=== PATIENT | female | born 1960 | race Caucasian/White ===

== ENCOUNTER 2019-03-28 16:16 | Emergency (ER) | payer OTHER ==
[~2019-03-28] VITALS: Ht 165.1 cm; Wt 73.9 kg
[2019-03-28] MEDS ORDERED: fentaNYL INJECTION 100 MCG/2 ML AMP IVP ONE (16:30)
[2019-03-28] MEDS ORDERED: KETOROLAC 30 MG/ML VIAL IVP ONE (16:30)
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
[2019-03-28] MEDS ORDERED: TETANUS,DIPTH,PERTUSS P/F (BOOSTRIX) 0.5 ML VIAL IM ONE (16:45)
[2019-03-28] MEDS ORDERED: KETOROLAC 30 MG/ML VIAL IM ONE (16:45)
[2019-03-28] MEDS ORDERED: oxyCODONE/APAP 5/325MG (PERCOCET 5) TABLET PO ONE (16:45)
[2019-03-28] MEDS ORDERED: OXYC1TAB87 PO (16:51)
[2019-03-28] MEDS ORDERED: BACITRACIN OINTMENT 28 GM TUBE ONE (16:56)
[2019-03-28 17:15] VITALS: BP 171/95
--- OUTSIDE RECORDS SUMMARY | 2019-03-28 17:24 | XMS REPORT ---
Author Author DAKOTA COOLEY [facility] Address Unknown Care Team Providers Care Health Services Manager Name Role Phone DAKOTA COOLEY Unavailable PROBLEMS Type Condition ICD9-CM Code [id number] Code Onset Dates Condition Status SNOMED Code Problem Hypercholesterolemia E78.00 Active 37011363 Problem Recurrent major depressive disorder, in partial remission F33.41 Active 63589960 Problem Hypercholesteremia E78.00 Active 767933464 Problem HTN (hypertension) I10 Active 95696591 Problem Masses of both breasts N63 Active 09275943 Problem Intractable episodic cluster headache G44.011 Active 667210266384324 Problem Depression F32.9 Active 40645143 ALLERGIES No Information ENCOUNTERS Encounter Location Date Diagnosis [facility] [address] [id number] Aug, [facility] [address] [id number] Aug, [facility] [address] [address] Aug, Blood pressure check Z01.30 [facility] [address] [address] Aug, HTN (hypertension) I10 [facility] [address] [id number] Jul, Caries K02.9 [facility] [address] [id number] Jul, [facility] [address] [address] Jul, [facility] [address] [address] Jul, HTN (hypertension) I10 ; Hypercholesteremia E78.00 and Recurrent major depressive disorder, in partial remission F33.41 [facility] [address] [place] [id number] [place] [phone] Apr, [facility] [id number] [place] [id number] Apr, [facility] [id number] [place] [phone] Apr, [facility] [address] [address] February, Depression F32.9 and HTN (hypertension) I10 [place] [address] [address] Oct, Masses of both breasts N63 and Screening for breast cancer Z12.[address] [address] Sep, Screening for breast cancer Z12.31 and Tobacco use Z72.0 [facility] [address] [address] Aug, Encounter for immunization Z23 [facility] [address] [address] Jun, Depression F32.9 [facility] [id number] [place] [phone] Jun, Dental examination Z01.20 [facility] [address] [address] May, HTN (hypertension) I10 ; Depression F32.9 ; Pure hypercholesterolemia E78.0 ; Intractable episodic cluster headache G44.011 and Tobacco abuse counseling Z71.6 [facility] [id number] [place] [id number] Mar, Dental examination Z01.20 [facility] [id number] [place] [phone] Mar, Encounter for dental examination Z01.20 [facility] [id number] [place] [phone] 07 Mar, 2017 Depression F32.9 and Pure hypercholesterolemia E78.0 [facility] [address] [address] Mar, Pure hypercholesterolemia E78.0 ; Depression F32.9 and HTN (hypertension) I10 [facility] [address] [address] Mar, Depression F32.9 ; Pure hypercholesterolemia E78.0 and HTN (hypertension) I10 [facility] [address] [address] Jan, HTN (hypertension) I10 ; Pure hypercholesterolemia E78.0 ; Hypercholesterolemia E78.0 ; Depression F32.9 and Intractable episodic cluster headache G44.011 [facility] [address] [id number] Apr, Dental caries K02.9 and Dental examination Z01.20 [facility] [address] [id number] Apr, [facility] [address] [id number] Apr, Dental examination Z01.20 [facility] [address] [id number] Mar, Dental examination Z01.20 [facility] [address] [id number] February, Dental examination Z01.20 [facility] [address] [address] February, Pure hypercholesterolemia E78.0 [facility] [address] [address] Jan, Joint pain M25.50 ; Depression F32.9 and Dermatitis L30.9 [facility] [address], [place] [id number] Nov, Encounter for dental examination Z01.20 [facility] [address] [place] [phone] Nov, [facility] [id number] [place] [address] [id number] Nov, Encounter for dental examination Z01.20 [facility] [id number] [place] [address] [phone] Nov, Encounter for dental examination Z01.20 [facility] [id number] [place] [address] Sep, Bursitis of right hip M70.71 and Trochanteric bursitis of right hip M70.61 [place] [id number] [place] [phone] Sep, [facility] [address] [address] Sep, HTN (hypertension) I10 and Hypercholesterolemia E78.0 [facility] [id number] [place] [phone] Sep, History of breast lump/mass excision Z98.89 [facility] [id number] [place] [phone] Sep, [facility] [id number] [place] [phone] Sep, History of breast lump/mass excision Z98.89 [facility] [id number] [place] [phone] Sep, Encounter for screening mammogram for breast cancer Z12.31 [facility] [id number] [place] [phone] Sep, HTN (hypertension) I10 ; Hypercholesterolemia E78.0 ; Depression F32.9 and Breast self examination education, encounter for Z71.89 IMMUNIZATIONS No Known Immunizations SOCIAL HISTORY Never Assessed REASON FOR VISIT Refill request PLAN OF CARE VITAL SIGNS MEDICATIONS Medication Instructions Dosage Frequency Start Date End Date Duration Status Chlorhexidine Gluconate 0.12 % Mouth/Throat 2 times a day as directed 12h Aug, 28 days Active RESULTS No Results PROCEDURES No Known procedures INSTRUCTIONS MEDICATIONS ADMINISTERED No Known Medications MEDICAL (GENERAL) HISTORY Type Description Date Medical History hypertension Medical History depression Surgical History wisdom teeth extraction Hospitalization History panic attack 2012
--- OUTSIDE RECORDS SUMMARY | 2019-03-28 17:24 | XMS REPORT ---
Author Author NITAMERCED DAKOTA [facility] Address Unknown Care Team Providers Care Director Of Student Life Name Role Phone DAKOTA COOLEY Unavailable PROBLEMS Type Condition ICD9-CM Code [id number] Code Onset Dates Condition Status SNOMED Code Problem Intractable episodic cluster headache G44.011 Active 509462116550180 Problem Depression F32.9 Active 96365124 Problem Hypercholesterolemia E78.00 Active 58744893 Problem HTN (hypertension) I10 Active 17106255 Problem Masses of both breasts N63 Active 95713304 ALLERGIES Substance Reaction Event Type Date Status Codeine Sulfate itching Drug Allergy Mar, Active ENCOUNTERS Encounter Location Date Diagnosis [place] [address] [address] Oct, Masses of both breasts N63 and Screening for breast cancer Z12.31 [place] [address] [address] Sep, Screening for breast cancer Z12.31 and Tobacco use Z72.0 [place] [address] [address] Aug, Encounter for immunization Z23 [place] [address] [address] Jun, Depression F32.9 [facility] [address] [phone] Jun, Dental examination Z01.20 [facility] [address] [address] May, HTN (hypertension) I10 ; Depression F32.9 ; Pure hypercholesterolemia E78.0 ; Intractable episodic cluster headache G44.011 and Tobacco abuse counseling Z71.6 [facility] [address], [place] [phone] Mar, Dental examination Z01.20 [facility] [address] [place] [phone] Mar, Encounter for dental examination Z01.20 [facility] [id number] [place] [address] Mar, Depression F32.9 and Pure hypercholesterolemia E78.0 [facility] [id number] [place] [address] Mar, Pure hypercholesterolemia E78.0 ; Depression F32.9 and HTN (hypertension) I10 [facility] [id number] [place] [address] Mar, Depression F32.9 ; Pure hypercholesterolemia E78.0 and HTN (hypertension) I10 [facility] [id number] [place] [address] Jan, HTN (hypertension) I10 ; Pure hypercholesterolemia E78.0 ; Hypercholesterolemia E78.0 ; Depression F32.9 and Intractable episodic cluster headache G44.011 [facility] [id number] [place] [phone] Apr, Dental caries K02.9 and Dental examination Z01.20 [facility] [id number] [place] [phone] Apr, [facility] [id number] [place] [address] [id number] Apr, Dental examination Z01.20 [facility] [id number] [place] [address] [phone] Mar, Dental examination Z01.20 [facility] [id number] [place] [address] [phone] February, Dental examination Z01.20 [facility] [id number] [place] [address] February, Pure hypercholesterolemia E78.0 [facility] [id number] [place] [address] Jan, Joint pain M25.50 ; Depression F32.9 and Dermatitis L30.9 [facility] [address] [id number] Nov, Encounter for dental examination Z01.20 [facility] [address] [id number] Nov, [facility] [address] [id number] Nov, Encounter for dental examination Z01.20 [facility] [address] [phone] Nov, Encounter for dental examination Z01.20 [place] [address] [address] Sep, Bursitis of right hip M70.71 and Trochanteric bursitis of right hip M70.61 [place] [address] [address] Sep, [place] [address] [address] Sep, HTN (hypertension) I10 and Hypercholesterolemia E78.0 [place] [address] [address] Sep, History of breast lump/mass excision Z98.89 [place] [address] [id number] [place] [phone] 18 Sep, 2015 [place] [address] [address] 16 Sep, 2015 History of breast lump/mass excision Z98.89 [place] [address] [address] 07 Sep, 2015 Encounter for screening mammogram for breast cancer Z12.31 [place] [address] [address] Sep, HTN (hypertension) I10 ; Hypercholesterolemia E78.0 ; Depression F32.9 and Breast self examination education, encounter for Z71.89 IMMUNIZATIONS No Known Immunizations SOCIAL HISTORY Never Assessed REASON FOR VISIT RESTORATIVE PLAN OF CARE Activity Details Follow Up prn Reason:filling #31 VITAL SIGNS Blood pressure systolic 143 mmHg 2017-04-03 Blood pressure diastolic 85 mmHg 2017-04-03 MEDICATIONS Medication Instructions Dosage Frequency Start Date End Date Duration Status Fish Oil Burp-Less 1000 MG Orally Once a day 1 capsule 24h Active Chlorhexidine Gluconate 0.12 % Mouth/Throat twice a day as directed 12Apr, 7 days Active Celexa 20 Orally Once a day 1 tablets 24h 30 Active Verapamil HCl ER 240 MG Orally Once a day 1 capsule 24h 12 Jan, 2017 30 day(s) Active Multi Vitamin - Orally Once a day 1 tablet 24h Active RESULTS No Results PROCEDURES Procedure Date Ordered Result Body Site RESIN COMPOS - 2 SURFACES POSTERIOR April 03, 2017 Billing Notes on claim April 03, 2017 [facility] Employee/Board adjustment April 03, 2017 INSTRUCTIONS MEDICATIONS ADMINISTERED No Known Medications MEDICAL (GENERAL) HISTORY Type Description Date Medical History hypertension Medical History depression Surgical History wisdom teeth extraction Hospitalization History panic attack 2012
--- OUTSIDE RECORDS SUMMARY | 2019-03-28 17:24 | XMS REPORT ---
Author Author DAX MARTIN Organization [employer] Address Unknown Phone Unavailable Care Team Providers Care Phone Counselor Name Role Phone DAX MARTIN Unavailable Allergies No Known Allergies Problems Problem Type Condition Code Onset Dates Condition Status Problem Hypercholesterolemia E78.0 Active Problem Depression F32.9 Active Problem HTN (hypertension) I10 Active Problem Masses of both breasts N63 Active Assessment History of breast lump/mass excision Z98.89 Active Medications No Known Medications Results No Known Results Summary Purpose [employer] Submission
--- OUTSIDE RECORDS SUMMARY | 2019-03-28 17:24 | XMS REPORT ---
Author Author LUKE BLISS Organization [facility] Address [address] [place] [address] Care Team Providers Care Property Inspector Name Role Phone LUKE BLISS Unavailable PROBLEMS Type Condition ICD9-CM Code UDE77-[id number] Code Onset Dates Condition Status SNOMED Code Problem Intractable episodic cluster headache G44.011 Active 658515994571358 Problem Major depressive disorder, recurrent, moderate F33.1 Active 388317266 Problem Hypercholesterolemia E78.00 Active 84944348 Problem Masses of both breasts N63 Active 46361721 Problem HTN (hypertension) I10 Active 30870661 Problem Depression F32.9 Active 27027630 ALLERGIES No Information ENCOUNTERS Encounter Location Date Diagnosis [facility] [address] [address] Jan, [facility] [address] [address] 26 Dec, 2018 Major depressive disorder, recurrent, moderate F33.[address] [facility] [id number] [place] [address] [id number] 15 Dec, 2018 Caries K02.9 [facility] [address] [address] 14 Dec, 2018 Moderate episode of recurrent major depressive disorder F33.1 [facility] [address] [address] 14 Dec, 2018 HTN (hypertension) I10 ; Moderate episode of recurrent major depressive disorder F33.1 ; Menopause Z78.0 and Toenail fungus B35.1 [facility] [id number] [place] [address] 12 Dec, [address] [facility] [address] [id number] Dec, Dental examination Z01.[address] [facility] [id number] [id number] Dec, Periodontitis K05.30 [facility] [address], [place] [address] Dec, [facility] [address], [place] [address] Nov, [facility] [id number] [place] [address] Nov, Toenail fungus B35.[address] [facility] [id number] [place] [phone] Oct, [address] [address] Oct, [facility] [id number], [place] [address] Sep, [facility] [id number] [id number] Aug, [facility] [id number] [id number] Aug, [facility] [id number] [address] Aug, Blood pressure check Z01.30 [facility] [address], [place] [address] Aug, HTN (hypertension) I10 [facility] [id number] [id number] Jul, Caries K02.[address] [facility] [id number] [place] [address] [id number] Jul, [facility] [address], [place] [address] Jul, [facility] [address], [place] [address] Jul, HTN (hypertension) I10 ; Hypercholesteremia E78.00 and Recurrent major depressive disorder, in partial remission F33.41 [facility] [address] [address] Apr, [facility] [address] [place] [address] [id number] Apr, [facility] [address] [id number] Apr, [place] [address] [address] February, Depression F32.9 and HTN (hypertension) I10 [place] [address] [address] Oct, Masses of both breasts N63 and Screening for breast cancer Z12.[address] [address] Sep, Screening for breast cancer Z12.31 and Tobacco use Z72.[address] [address] Aug, Encounter for immunization Z23 [place] [id number] [place] [address] 15 Jun, [address] [facility] [id number] [place] [address] [id number] Jun, Dental examination Z01.20 [facility] [id number] [place] [address] 02 May, 2017 HTN (hypertension) I10 ; Depression F32.9 ; Pure hypercholesterolemia E78.0 ; Intractable episodic cluster headache G44.011 and Tobacco abuse counseling Z71.[address] [facility] [id number] [place] [address] [id number] Mar, Dental examination Z01.[address] [facility] [address] [id number] Mar, Encounter for dental examination Z01.20 [facility] [id number] [place] [address] 07 Mar, 2017 Depression F32.9 and Pure hypercholesterolemia E78.0 [facility] [id number] [place] [address] 07 Mar, 2017 Pure hypercholesterolemia E78.0 ; Depression F32.9 and HTN (hypertension) I10 [facility] [id number] [place] [address] Mar, Depression F32.9 ; Pure hypercholesterolemia E78.0 and HTN (hypertension) I10 [facility] [id number] [place] [address] Jan, HTN (hypertension) I10 ; Pure hypercholesterolemia E78.0 ; Hypercholesterolemia E78.0 ; Depression F32.9 and Intractable episodic cluster headache G44.[address] [facility] [id number] [place] [address] [id number] Apr, Dental caries K02.9 and Dental examination Z01.[address] [facility] [id number] [place] [address] [id number] Apr, [facility] [id number] [place] [address] [id number] Apr, Dental examination Z01.[address] [facility] [id number] [place] [address] [id number] Mar, Dental examination Z01.[address] [facility] [address] [place] [address] [id number] February, Dental examination Z01.20 [facility] [id number] [place] [address] February, Pure hypercholesterolemia E78.0 [facility] [id number] [place] [address] Jan, Joint pain M25.50 ; Depression F32.9 and Dermatitis L30.[address] [facility] [id number] [id number] Nov, Encounter for dental examination Z01.[address] [facility] [address] [place] [address] [id number] Nov, [facility] [id number] [id number] Nov, Encounter for dental examination Z01.[address] [facility] [address] [place] [address] [id number] Nov, Encounter for dental examination Z01.20 [facility] [address] [id number] Sep, Bursitis of right hip M70.71 and Trochanteric bursitis of right hip M70.61 [place] [id number] [place] [address] Sep, [place] [address] [address] Sep, HTN (hypertension) I10 and Hypercholesterolemia E78.0 [place] [address] [address] Sep, History of breast lump/mass excision Z98.89 [place] [id number] [place] [address] Sep, [facility] [address] [address] 16 Sep, 2015 History of breast lump/mass excision Z98.89 [place] [address] [address] Sep, Encounter for screening mammogram for breast cancer Z12.31 [facility] [id number] [place] [address] 07 Sep, 2015 HTN (hypertension) I10 ; Hypercholesterolemia E78.0 ; Depression F32.9 and Breast self examination education, encounter for Z71.89 IMMUNIZATIONS No Known Immunizations SOCIAL HISTORY Never Assessed REASON FOR VISIT Referral PLAN OF CARE VITAL SIGNS MEDICATIONS Unknown Medications RESULTS No Results PROCEDURES No Known procedures INSTRUCTIONS MEDICATIONS ADMINISTERED No Known Medications MEDICAL (GENERAL) HISTORY Type Description Date Medical History hypertension Medical History depression Surgical History wisdom teeth extraction Hospitalization History panic attack 2012
--- OUTSIDE RECORDS SUMMARY | 2019-03-28 17:25 | XMS REPORT ---
Author Author NITAMERCED DAKOTA [facility] Address Unknown Care Team Providers Care Certified Surgical Tech/First Assistant Name Role Phone DAKOTA COOLEY Unavailable PROBLEMS Type Condition ICD9-CM Code COR18-LH Code Onset Dates Condition Status SNOMED Code Problem Intractable episodic cluster headache G44.011 Active 357415104337013 Problem Depression F32.9 Active 33850618 Problem Hypercholesterolemia E78.00 Active 99948190 Problem HTN (hypertension) I10 Active 50026089 Problem Masses of both breasts N63 Active 11241371 ALLERGIES No Information ENCOUNTERS Encounter Location Date Diagnosis [facility] [id number] [place] [address] Apr, [facility] [id number] [place] [address] [id number] Apr, [facility] [id number] [place] [address] [id number] Apr, [facility] [id number] [place] [address] February, Depression F32.9 and HTN (hypertension) I10 [facility] [id number] [place] [address] Oct, Masses of both breasts N63 and Screening for breast cancer Z12.31 [facility] [id number] [place] [address] Sep, Screening for breast cancer Z12.31 and Tobacco use Z72.0 [facility] [id number] [place] [address] Aug, Encounter for immunization Z23 [facility] [id number] [place] [address] 15 Jun, 2017 Depression F32.9 [facility] [address] [place] [address] [id number] Jun, Dental examination Z01.20 [facility] [id number] [place] [address] May, HTN (hypertension) I10 ; Depression F32.9 ; Pure hypercholesterolemia E78.0 ; Intractable episodic cluster headache G44.011 and Tobacco abuse counseling Z71.6 [facility] [id number] [place] [address] [id number] Mar, Dental examination Z01.20 [facility] [id number] [place] [address] [id number] Mar, Encounter for dental examination Z01.20 [facility] [address] [address] 07 Mar, 2017 Depression F32.9 and Pure hypercholesterolemia E78.0 [facility] [address] [address] Mar, Pure hypercholesterolemia E78.0 ; Depression F32.9 and HTN (hypertension) I10 [facility] [address] [address] Mar, Depression F32.9 ; Pure hypercholesterolemia E78.0 and HTN (hypertension) I10 [facility] [id number] [place] [address] Jan, HTN (hypertension) I10 ; Pure hypercholesterolemia E78.0 ; Hypercholesterolemia E78.0 ; Depression F32.9 and Intractable episodic cluster headache G44.011 [facility] [address] [id number] Apr, Dental caries K02.9 and Dental examination Z01.20 [facility] [address] [place] [address] [id number] Apr, [facility] [id number] [place] [address] [id number] Apr, Dental examination Z01.20 [facility] [address] [place] [address] [id number] Mar, Dental examination Z01.20 [facility] [address] [id number] February, Dental examination Z01.20 [facility] [address] [address] February, Pure hypercholesterolemia E78.0 [facility] [address] [address] Jan, Joint pain M25.50 ; Depression F32.9 and Dermatitis L30.9 [facility] [address] [id number] Nov, Encounter for dental examination Z01.20 [facility] [id number] [place] [address] [id number] Nov, [facility] [id number] [place] [address] [id number] Nov, Encounter for dental examination Z01.20 [facility] [address] [id number] Nov, Encounter for dental examination Z01.20 [facility] [id number] [place] [address] Sep, Bursitis of right hip M70.71 and Trochanteric bursitis of right hip M70.61 [facility] [id number] [place] [address] Sep, [facility] [address] [address] Sep, HTN (hypertension) I10 and Hypercholesterolemia E78.0 [facility] [id number] [place] [address] Sep, History of breast lump/mass excision Z98.89 [facility] [address] [address] Sep, [facility] [address] [facility] [id number] [address] 16 Sep, 2015 History of breast lump/mass excision Z98.89 [facility] [id number], [place] [address] 07 Sep, 2015 Encounter for screening mammogram for breast cancer Z12.31 [place] [id number], [place] [address] 07 Sep, 2015 HTN (hypertension) I10 ; Hypercholesterolemia E78.0 ; Depression F32.9 and Breast self examination education, encounter for Z71.89 IMMUNIZATIONS No Known Immunizations SOCIAL HISTORY Never Assessed REASON FOR VISIT Refill request PLAN OF CARE VITAL SIGNS MEDICATIONS Unknown Medications RESULTS No Results PROCEDURES No Known procedures INSTRUCTIONS MEDICATIONS ADMINISTERED No Known Medications MEDICAL (GENERAL) HISTORY Type Description Date Medical History hypertension Medical History depression Surgical History wisdom teeth extraction Hospitalization History panic attack 2012
--- OUTSIDE RECORDS SUMMARY | 2019-03-28 17:25 | XMS REPORT ---
Author Author NITAMERCED DAKOTA [facility] Address Unknown Care Team Providers Care Radiator Core Tester Name Role Phone DAKOTA COOLEY Unavailable PROBLEMS Type Condition ICD9-CM Code DFY35-BA Code Onset Dates Condition Status SNOMED Code Problem Intractable episodic cluster headache G44.011 Active 172132454749714 Problem Depression F32.9 Active 93741790 Problem Hypercholesterolemia E78.00 Active 95776934 Problem HTN (hypertension) I10 Active 51241980 Problem Masses of both breasts N63 Active 32613556 ALLERGIES No Information ENCOUNTERS Encounter Location Date Diagnosis [facility] [id number] [place] [address] Apr, [facility] [id number] [place] [address] [id number] Apr, [facility] [id number] [place] [address] [id number] Apr, [facility] [id number] [place] [address] February, Depression F32.9 and HTN (hypertension) I10 [facility] [id number] [place] [address] Oct, Masses of both breasts N63 and Screening for breast cancer Z12.31 [facility] [id number] [place] [address] Sep, Screening for breast cancer Z12.31 and Tobacco use Z72.0 [facility] [id number] [place] [address] Aug, Encounter for immunization Z23 [facility] [id number] [place] [address] 15 Jun, 2017 Depression F32.9 [facility] [address] [place] [address] [id number] Jun, Dental examination Z01.20 [facility] [id number] [place] [id number] May, HTN (hypertension) I10 ; Depression F32.9 ; Pure hypercholesterolemia E78.0 ; Intractable episodic cluster headache G44.011 and Tobacco abuse counseling Z71.6 [facility] [id number] [place] [address] [id number] Mar, Dental examination Z01.20 [facility] [id number] [place] [address] [id number] Mar, Encounter for dental examination Z01.20 [facility] [address] [address] 07 Mar, 2017 Depression F32.9 and Pure hypercholesterolemia E78.0 [facility] [address] [address] Mar, Pure hypercholesterolemia E78.0 ; Depression F32.9 and HTN (hypertension) I10 [facility] [address] [address] Mar, Depression F32.9 ; Pure hypercholesterolemia E78.0 and HTN (hypertension) I10 [facility] [id number] [place] [address] Jan, HTN (hypertension) I10 ; Pure hypercholesterolemia E78.0 ; Hypercholesterolemia E78.0 ; Depression F32.9 and Intractable episodic cluster headache G44.011 [facility] [address] [id number] Apr, Dental caries K02.9 and Dental examination Z01.20 [facility] [address] [place] [address] [id number] Apr, [facility] [id number] [place] [address] [id number] Apr, Dental examination Z01.20 [facility] [address] [place] [address] [id number] Mar, Dental examination Z01.20 [facility] [address] [id number] February, Dental examination Z01.20 [facility] [address] [address] February, Pure hypercholesterolemia E78.0 [facility] [address] [address] Jan, Joint pain M25.50 ; Depression F32.9 and Dermatitis L30.9 [facility] [address] [id number] Nov, Encounter for dental examination Z01.20 [facility] [id number] [place] [address] [id number] Nov, [facility] [id number] [place] [address] [id number] Nov, Encounter for dental examination Z01.20 [facility] [address] [id number] Nov, Encounter for dental examination Z01.20 [facility] [id number] [place] [address] Sep, Bursitis of right hip M70.71 and Trochanteric bursitis of right hip M70.61 [facility] [id number] [place] [address] Sep, [facility] [address] [address] Sep, HTN (hypertension) I10 and Hypercholesterolemia E78.0 [facility] [id number] [place] [address] Sep, History of breast lump/mass excision Z98.89 [facility] [address] [address] Sep, [facility] [address] [facility] [id number] [address] 16 Sep, 2015 History of breast lump/mass excision Z98.89 [facility] [id number] [address] Sep, Encounter for screening mammogram for breast cancer Z12.31 [place] [id number] [address] 07 Sep, 2015 HTN (hypertension) I10 ; Hypercholesterolemia E78.0 ; Depression F32.9 and Breast self examination education, encounter for Z71.89 IMMUNIZATIONS No Known Immunizations SOCIAL HISTORY Never Assessed REASON FOR VISIT Refill request PLAN OF CARE VITAL SIGNS MEDICATIONS Medication Instructions Dosage Frequency Start Date End Date Duration Status Chlorhexidine Gluconate 0.12 % Mouth/Throat 2 times a day as directed 12h 28 days Active RESULTS No Results PROCEDURES No Known procedures INSTRUCTIONS MEDICATIONS ADMINISTERED No Known Medications MEDICAL (GENERAL) HISTORY Type Description Date Medical History hypertension Medical History depression Surgical History wisdom teeth extraction Hospitalization History panic attack 2012
--- OUTSIDE RECORDS SUMMARY | 2019-03-28 17:25 | XMS REPORT ---
Author Author DAKOTA COOLEY [facility] Address Unknown Care Team Providers Care Computer Network And Systems Engineer Name Role Phone DAKOTA COOLEY Unavailable PROBLEMS Type Condition ICD9-CM Code [id number] Code Onset Dates Condition Status SNOMED Code Problem Hypercholesterolemia E78.00 Active 03970370 Problem Recurrent major depressive disorder, in partial remission F33.41 Active 71839809 Problem Hypercholesteremia E78.00 Active 892451321 Problem HTN (hypertension) I10 Active 52642344 Problem Masses of both breasts N63 Active 14036276 Problem Intractable episodic cluster headache G44.011 Active 271866045021015 Problem Depression F32.9 Active 78603798 ALLERGIES No Information ENCOUNTERS Encounter Location Date Diagnosis [facility] [address] [id number] Aug, [facility] [address] [id number] Aug, [facility] [place] [address] [address] Aug, Blood pressure check Z01.30 [facility] [place] [address] [address] Aug, HTN (hypertension) I10 [facility] [address] [id number] Jul, Caries K02.9 [facility] [address] [id number] Jul, [facility] [place] [address] [address] Jul, [facility] [place] [address] [address] Jul, HTN (hypertension) I10 ; Hypercholesteremia E78.00 and Recurrent major depressive disorder, in partial remission F33.41 [facility] [place] [id number] [place] [address] Apr, [facility] [id number] [place] [address] [id number] Apr, [facility] [id number] [place] [address] [id number] Apr, [facility] [place] [address] [address] February, Depression F32.9 and HTN (hypertension) I10 [place] [address] [address] Oct, Masses of both breasts N63 and Screening for breast cancer Z12.[address] [address] Sep, Screening for breast cancer Z12.31 and Tobacco use Z72.0 [facility] [place] [address] [address] Aug, Encounter for immunization Z23 [facility] [place] [address] [address] Jun, Depression F32.9 [facility] [id number] [place] [address] [id number] Jun, Dental examination Z01.20 [facility] [place] [address] [address] May, HTN (hypertension) I10 ; Depression F32.9 ; Pure hypercholesterolemia E78.0 ; Intractable episodic cluster headache G44.011 and Tobacco abuse counseling Z71.6 [facility] [id number] [place] [address] [id number] Mar, Dental examination Z01.20 [facility] [id number] [place] [address] [id number] Mar, Encounter for dental examination Z01.20 [facility] [place] [id number] [place] [address] 07 Mar, 2017 Depression F32.9 and Pure hypercholesterolemia E78.0 [facility] [place] [address] [address] Mar, Pure hypercholesterolemia E78.0 ; Depression F32.9 and HTN (hypertension) I10 [facility] [place] [address] [address] Mar, Depression F32.9 ; Pure hypercholesterolemia E78.0 and HTN (hypertension) I10 [facility] [place] [address] [address] Jan, HTN (hypertension) I10 ; Pure hypercholesterolemia E78.0 ; Hypercholesterolemia E78.0 ; Depression F32.9 and Intractable episodic cluster headache G44.011 [facility] [address] [id number] Apr, Dental caries K02.9 and Dental examination Z01.20 [facility] [address] [id number] Apr, [facility] [address] [id number] Apr, Dental examination Z01.20 [facility] [address] [id number] Mar, Dental examination Z01.20 [facility] [address] [id number] February, Dental examination Z01.20 [facility] [place] [address] [address] February, Pure hypercholesterolemia E78.0 [facility] [place] [address] [address] Jan, Joint pain M25.50 ; Depression F32.9 and Dermatitis L30.9 [facility] [address], [place] [id number] Nov, Encounter for dental examination Z01.20 [facility] [address] [place] [address] [id number] Nov, [facility] [id number] [place] [address] [phone] Nov, Encounter for dental examination Z01.20 [facility] [id number] [place] [address] [id number] Nov, Encounter for dental examination Z01.20 [facility] [place] [id number] [place] [address] Sep, Bursitis of right hip M70.71 and Trochanteric bursitis of right hip M70.61 [place] [id number] [place] [phone] Sep, [facility] [place] [address] [address] Sep, HTN (hypertension) I10 and Hypercholesterolemia E78.0 [facility] [place] [id number] [place] [address] Sep, History of breast lump/mass excision Z98.89 [facility] [place] [id number] [place] [address] Sep, [facility] [place] [id number] [place] [address] Sep, History of breast lump/mass excision Z98.89 [facility] [place] [id number] [place] [address] Sep, Encounter for screening mammogram for breast cancer Z12.31 [facility] [place] [id number] [place] [address] Sep, HTN (hypertension) I10 ; Hypercholesterolemia E78.0 [...]
--- OUTSIDE RECORDS SUMMARY | 2019-03-28 17:25 | XMS REPORT ---
Author Author NITAMERCED DAKOTA [facility] Address Unknown Care Team Providers Care Financial Brokers Name Role Phone DAKOTA COOLEY Unavailable PROBLEMS Type Condition ICD9-CM Code RVM68-IQ Code Onset Dates Condition Status SNOMED Code Problem Intractable episodic cluster headache G44.011 Active 855422140470211 Problem Depression F32.9 Active 42943452 Problem Hypercholesterolemia E78.00 Active 62715165 Problem HTN (hypertension) I10 Active 97679198 Problem Masses of both breasts N63 Active 21947201 ALLERGIES No Information ENCOUNTERS Encounter Location Date Diagnosis [facility] [id number] [place] [address] Apr, [facility] [id number] [place] [address] [id number] Apr, [facility] [id number] [place] [address] [id number] Apr, [facility] [id number] [place] [address] February, Depression F32.9 and HTN (hypertension) I10 [facility] [id number] [place] [address] Oct, Masses of both breasts N63 and Screening for breast cancer Z12.31 [facility] [id number] [place] [address] Sep, Screening for breast cancer Z12.31 and Tobacco use Z72.0 [facility] [id number] [place] [address] Aug, Encounter for immunization Z23 [facility] [id number] [place] [address] 15 Jun, 2017 Depression F32.9 [facility] [id number] [place] [address] [id number] Jun, Dental examination Z01.20 [facility] [id number] [place], [place] [id number] May, HTN (hypertension) I10 ; Depression F32.9 ; Pure hypercholesterolemia E78.0 ; Intractable episodic cluster headache G44.011 and Tobacco abuse counseling Z71.6 [facility] [id number] [place] [address] [id number] Mar, Dental examination Z01.20 [facility] [id number] [place] [address] [id number] Mar, Encounter for dental examination Z01.20 [facility] [address] [address] 07 Mar, 2017 Depression F32.9 and Pure hypercholesterolemia E78.0 [facility] [address] [address] Mar, Pure hypercholesterolemia E78.0 ; Depression F32.9 and HTN (hypertension) I10 [facility] [address] [address] Mar, Depression F32.9 ; Pure hypercholesterolemia E78.0 and HTN (hypertension) I10 [facility] [id number] [place] [address] Jan, HTN (hypertension) I10 ; Pure hypercholesterolemia E78.0 ; Hypercholesterolemia E78.0 ; Depression F32.9 and Intractable episodic cluster headache G44.011 [facility] [address] [id number] Apr, Dental caries K02.9 and Dental examination Z01.20 [facility] [id number] [place] [address] [id number] Apr, [facility] [id number] [place] [address] [id number] Apr, Dental examination Z01.20 [facility] [address] [place] [address] [id number] Mar, Dental examination Z01.20 [facility] [address] [id number] February, Dental examination Z01.20 [facility] [address] [address] February, Pure hypercholesterolemia E78.0 [facility] [address] [address] Jan, Joint pain M25.50 ; Depression F32.9 and Dermatitis L30.9 [facility] [address] [id number] Nov, Encounter for dental examination Z01.20 [facility] [id number] [place] [address] [id number] Nov, [facility] [id number] [place] [address] [phone] Nov, Encounter for dental examination Z01.20 [facility] [address] [id number] Nov, Encounter for dental examination Z01.20 [facility] [id number] [place] [address] Sep, Bursitis of right hip M70.71 and Trochanteric bursitis of right hip M70.61 [facility] [id number] [place] [address] Sep, [facility] [address] [address] Sep, HTN (hypertension) I10 and Hypercholesterolemia E78.0 [facility] [id number] [place] [address] Sep, History of breast lump/mass excision Z98.89 [facility] [address] [address] Sep, [facility] [id number] [address] 16 Sep, 2015 History of breast lump/mass excision Z98.89 [facility] [id number] [address] 07 Sep, 2015 Encounter for screening mammogram for breast cancer Z12.31 [place] [id number] [address] 07 Sep, 2015 HTN (hypertension) I10 ; Hypercholesterolemia E78.0 ; Depression F32.9 and Breast self examination education, encounter for Z71.89 IMMUNIZATIONS No Known Immunizations SOCIAL HISTORY Never Assessed REASON FOR VISIT medication PLAN OF CARE VITAL SIGNS MEDICATIONS Unknown Medications RESULTS No Results PROCEDURES No Known procedures INSTRUCTIONS MEDICATIONS ADMINISTERED No Known Medications MEDICAL (GENERAL) HISTORY Type Description Date Medical History hypertension Medical History depression Surgical History wisdom teeth extraction Hospitalization History panic attack 2012
--- OUTSIDE RECORDS SUMMARY | 2019-03-28 17:25 | XMS REPORT ---
Author Author LUKE BLISS Organization [facility] Address [address] [place] [address] Care Team Providers Care Electronic Security Specialist Name Role Phone LUKE BLISS Unavailable PROBLEMS Type Condition ICD9-CM Code MZY88-IZ Code Onset Dates Condition Status SNOMED Code Problem Hypercholesterolemia E78.00 Active 63063888 Problem Recurrent major depressive disorder, in partial remission F33.41 Active 51209334 Problem Hypercholesteremia E78.00 Active 816593543 Problem HTN (hypertension) I10 Active 59740355 Problem Masses of both breasts N63 Active 96912944 Problem Intractable episodic cluster headache G44.011 Active 064009869463882 Problem Depression F32.9 Active 97685580 ALLERGIES No Information ENCOUNTERS Encounter Location Date Diagnosis [facility] [address] [address] Aug, Blood pressure check Z01.30 [facility] [address] [address] Aug, HTN (hypertension) I10 [facility] [id number] [place] [address] [phone] Jul, Caries K02.9 [facility] [address] [id number] Jul, [facility] [address] [address] Jul, [facility] [address] [address] Jul, HTN (hypertension) I10 ; Hypercholesteremia E78.00 and Recurrent major depressive disorder, in partial remission F33.41 [facility] [address] [address] Apr, [facility] [address] [place] [address] [phone] Apr, [facility] [id number] [place] [address] [id number] Apr, [facility] [address] [address] February, Depression F32.9 and HTN (hypertension) I10 [facility] [address] [address] Oct, Masses of both breasts N63 and Screening for breast cancer Z12.31 [place] [address] [address] Sep, Screening for breast cancer Z12.31 and Tobacco use Z72.0 [place] [address] [address] Aug, Encounter for immunization Z23 [facility] [address] [address] 15 Jun, 2017 Depression F32.9 [facility] [address] [id number] 15 Jun, 2017 Dental examination Z01.20 [facility] [address] [address] May, HTN (hypertension) I10 ; Depression F32.9 ; Pure hypercholesterolemia E78.0 ; Intractable episodic cluster headache G44.011 and Tobacco abuse counseling Z71.6 [facility] [address] [place] [address] [id number] Mar, Dental examination Z01.20 [facility] [address] [id number] Mar, Encounter for dental examination Z01.20 [facility] [id number] [place] [address] Mar, Depression F32.9 and Pure hypercholesterolemia E78.0 [facility] [id number] [place] [address] 07 Mar, 2017 Pure hypercholesterolemia E78.0 ; Depression F32.9 and HTN (hypertension) I10 [facility] [id number] [place] [address] Mar, Depression F32.9 ; Pure hypercholesterolemia E78.0 and HTN (hypertension) I10 [facility] [address] [address] Jan, HTN (hypertension) I10 ; Pure hypercholesterolemia E78.0 ; Hypercholesterolemia E78.0 ; Depression F32.9 and Intractable episodic cluster headache G44.011 [facility] [address] [id number] Apr, Dental caries K02.9 and Dental examination Z01.20 [facility] [address] [id number] Apr, [facility] [address] [id number] Apr, Dental examination Z01.20 [facility] [address] [id number] Mar, Dental examination Z01.20 [facility] [address] [id number] February, Dental examination Z01.20 [facility] [id number] [place] [address] February, Pure hypercholesterolemia E78.0 [facility] [address] [address] Jan, Joint pain M25.50 ; Depression F32.9 and Dermatitis L30.9 [facility] [address] [id number] Nov, Encounter for dental examination Z01.20 [facility] [address] [id number] Nov, [facility] [address] [facility] [id number] [id number] Nov, Encounter for dental examination Z01.20 [facility] [address] [id number] Nov, Encounter for dental examination Z01.20 [facility] [id number] [place] [address] Sep, Bursitis of right hip M70.71 and Trochanteric bursitis of right hip M70.61 [place] [id number] [place] [address] Sep, [place] [id number] [place] [address] Sep, HTN (hypertension) I10 and Hypercholesterolemia E78.0 [place] [id number] [place] [address] Sep, History of breast lump/mass excision Z98.89 [place] [id number] [place] [address] Sep, [place] [id number] [place] [address] Sep, History of breast lump/mass excision Z98.89 [place] [id number] [place] [address] Sep, Encounter for screening mammogram for breast cancer Z12.31 [facility] [id number] [place] [address] Sep, HTN (hypertension) I10 ; Hypercholesterolemia E78.0 ; Depression F32.9 and Breast self examination education, encounter for Z71.89 IMMUNIZATIONS No Known Immunizations SOCIAL HISTORY Never Assessed REASON FOR VISIT bp check Tracey Webber MA PLAN OF CARE VITAL SIGNS MEDICATIONS Unknown Medications RESULTS No Results PROCEDURES No Known procedures INSTRUCTIONS MEDICATIONS ADMINISTERED No Known Medications MEDICAL (GENERAL) HISTORY Type Description Date Medical History hypertension Medical History depression Surgical History wisdom teeth extraction Hospitalization History panic attack 2013
--- OUTSIDE RECORDS SUMMARY | 2019-03-28 17:25 | XMS REPORT ---
Author Author NITAMERCED DAKOTA [facility] Address Unknown Care Team Providers Care Dental Amalgam Processor Name Role Phone DAKOTA COOLEY Unavailable PROBLEMS Type Condition ICD9-CM Code FRS43-XJ Code Onset Dates Condition Status SNOMED Code Problem Hypercholesterolemia E78.00 Active 55888932 Problem Recurrent major depressive disorder, in partial remission F33.41 Active 47306955 Problem Hypercholesteremia E78.00 Active 361769301 Problem HTN (hypertension) I10 Active 91627684 Problem Masses of both breasts N63 Active 13566591 Problem Intractable episodic cluster headache G44.011 Active 484316351135964 Problem Depression F32.9 Active 98086810 ALLERGIES Substance Reaction Event Type Date Status Codeine Sulfate itching Drug Allergy Jul, Active ENCOUNTERS Encounter Location Date Diagnosis [facility] [id number] [place] [address] [phone] Oct, [facility] [address] [id number] Jul, Caries K02.9 [facility] [id number] [place] [address] [phone] Jul, [facility] [id number] [place] [phone] Jul, [facility] [id number] [place] [phone] Jul, HTN (hypertension) I10 ; Hypercholesteremia E78.00 and Recurrent major depressive disorder, in partial remission F33.41 [facility] [id number] [place] [phone] Apr, [facility] [id number] [place] [address] [id number] Apr, [facility] [address] [place] [address] [phone] Apr, [facility] [id number] [place] [phone] February, Depression F32.9 and HTN (hypertension) I10 [facility] [id number] [place] [phone] Oct, Masses of both breasts N63 and Screening for breast cancer Z12.31 [place] [id number] [place] [phone] Sep, Screening for breast cancer Z12.31 and Tobacco use Z72.0 [place] [address] [address] Aug, Encounter for immunization Z23 [place] [address] [address] Jun, Depression F32.9 [facility] [address] [id number] Jun, Dental examination Z01.20 [facility] [id number] [place] [phone] May, HTN (hypertension) I10 ; Depression F32.9 ; Pure hypercholesterolemia E78.0 ; Intractable episodic cluster headache G44.011 and Tobacco abuse counseling Z71.6 [facility] [address] [place] [address] [id number] Mar, Dental examination Z01.20 [facility] [address] [place] [address] [id number] Mar, Encounter for dental examination Z01.20 [facility] [address] [address] Mar, Depression F32.9 and Pure hypercholesterolemia E78.0 [facility] [id number] [place] [phone] Mar, Pure hypercholesterolemia E78.0 ; Depression F32.9 and HTN (hypertension) I10 [facility] [id number] [place] [phone] Mar, Depression F32.9 ; Pure hypercholesterolemia E78.0 and HTN (hypertension) I10 [facility] [id number] [place] [phone] Jan, HTN (hypertension) I10 ; Pure hypercholesterolemia E78.0 ; Hypercholesterolemia E78.0 ; Depression F32.9 and Intractable episodic cluster headache G44.011 [facility] [address] [id number] Apr, Dental caries K02.9 and Dental examination Z01.20 [facility] [address] [phone] Apr, [facility] [address] [id number] Apr, Dental examination Z01.20 [facility] [address] [id number] Mar, Dental examination Z01.20 [facility] [address] [id number] February, Dental examination Z01.20 [facility] [address] [address] February, Pure hypercholesterolemia E78.0 [facility] [address] [address] Jan, Joint pain M25.50 ; Depression F32.9 and Dermatitis L30.9 [facility] [id number] [place] [address] [phone] Nov, Encounter for dental examination Z01.20 [facility] [address] [id number] Nov, [facility] [id number] [place] [address] [id number] Nov, Encounter for dental examination Z01.20 [facility] [id number] [place] [address] [id number] Nov, 2015 Encounter for dental examination Z01.20 [facility] [id number] [place], [place] [phone] Sep, Bursitis of right hip M70.71 and Trochanteric bursitis of right hip M70.61 [facility] [id number] [place] [phone] Sep, [facility] [address] [address] Sep, HTN (hypertension) I10 and Hypercholesterolemia E78.0 [place] [id number] [place] [phone] Sep, History of breast lump/mass excision Z98.89 [facility] [id number] [place] [phone] Sep, [facility] [id number] [place] [phone] 16 Sep, 2015 History of breast lump/mass excision Z98.89 [place] [id number] [place] [phone] Sep, Encounter for screening mammogram for breast cancer Z12.31 [facility] [id number] [place] [phone] 07 Sep, 2015 HTN (hypertension) I10 ; Hypercholesterolemia E78.0 ; Depression F32.9 and Breast self examination education, encounter for Z71.89 IMMUNIZATIONS No Known Immunizations SOCIAL HISTORY Never Assessed REASON FOR VISIT FILLING PER DDS With Dr. Cooley #15 PLAN OF CARE Activity Details Follow Up prn Reason: VITAL SIGNS Height 65 in 2018-08-16 Blood pressure systolic 140 mmHg 2018-08-16 Blood pressure diastolic 85 mmHg 2018-08-16 MEDICATIONS Medication Instructions Dosage Frequency Start Date End Date Duration Status PreviDent 5000 Plus 1.1 % Dental 2 times a day as directed 12h 19 Jul, 2018 Jan, 90 days Active Lipitor 40 mg Orally Once a day 1 tablet 24h Jul, 30 day(s) Active Chlorhexidine Gluconate 0.12 % Mouth/Throat 2 times a day as directed 12h 28 days Active Fish Oil Burp-Less 1000 MG Orally Once a day 1 capsule 24h Active Multi Vitamin - Orally Once a day 1 tablet 24h Active Lorazepam 0.5 MG Orally 2 times a day 1 tablet as needed 12h May, Active Lisinopril 20 mg Orally Once a day 1/2 tablet daily for one week then one tablet daily 24h Jul, 30 day(s) Active Celexa 20 mg Orally Once a day 1 tablets 24h 90 Active RESULTS No Results PROCEDURES Procedure Date Ordered Result Body Site AMALGAM-TWO SURFACES PRIMARY/PERM Aug 16, 2018 Billing Notes on claim Aug 16, 2018 [employer] Employee/Board adjustment Aug 16, 2018 INSTRUCTIONS MEDICATIONS ADMINISTERED No Known Medications MEDICAL (GENERAL) HISTORY Type Description Date Medical History hypertension Medical History depression Surgical History wisdom teeth extraction Hospitalization History panic attack 2012
--- OUTSIDE RECORDS SUMMARY | 2019-03-28 17:26 | XMS REPORT ---
Author Author DAX MARTIN Organization [employer] Address Unknown Phone Unavailable Care Team Providers Care Ceo Ziff Davis Name Role Phone DAX MARTIN CP Unavailable Allergies No Known Allergies Problems Problem Type Condition Code Onset Dates Condition Status Problem Hypercholesterolemia E78.0 Active Problem Depression F32.9 Active Problem HTN (hypertension) I10 Active Problem Masses of both breasts N63 Active Assessment History of breast lump/mass excision Z98.89 Active Medications No Known Medications Results No Known Results Summary Purpose [employer] Submission
--- OUTSIDE RECORDS SUMMARY | 2019-03-28 17:26 | XMS REPORT ---
Author Author LUKE BLISS Organization [facility] Address [address] [place] [address] Care Team Providers Care Die Designer Name Role Phone LUKE BLISS Unavailable PROBLEMS Type Condition ICD9-CM Code OWI57-HZ Code Onset Dates Condition Status SNOMED Code Problem Intractable episodic cluster headache G44.011 Active 601400915263610 Problem Depression F32.9 Active 09321169 Problem Hypercholesterolemia E78.00 Active 25659596 Problem HTN (hypertension) I10 Active 90611056 Problem Masses of both breasts N63 Active 87644726 ALLERGIES Substance Reaction Event Type Date Status Codeine Sulfate itching Drug Allergy Sep, Active ENCOUNTERS Encounter Location Date Diagnosis [facility] [address] [phone] Mar, [facility] [address] [address] February, Depression F32.9 and HTN (hypertension) I10 [facility] [id number] [place] [phone] Oct, Masses of both breasts N63 and Screening for breast cancer Z12.31 [facility] [id number] [place] [phone] Sep, Screening for breast cancer Z12.31 and Tobacco use Z72.0 [facility] [address] [address] Aug, Encounter for immunization Z23 [facility] [address] [address] Jun, Depression F32.9 [facility] [address] [phone] Jun, Dental examination Z01.20 [facility] [address] [place] [phone] May, HTN (hypertension) I10 ; Depression F32.9 ; Pure hypercholesterolemia E78.0 ; Intractable episodic cluster headache G44.011 and Tobacco abuse counseling Z71.6 [facility] [id number] [place] [address] [id number] Mar, Dental examination Z01.20 [facility] [address] [id number] Mar, Encounter for dental examination Z01.20 [facility] [address] [address] Mar, Depression F32.9 and Pure hypercholesterolemia E78.0 [facility] [address] [address] Mar, Pure hypercholesterolemia E78.0 ; Depression F32.9 and HTN (hypertension) I10 [facility] [id number] [place] [phone] Mar, Depression F32.9 ; Pure hypercholesterolemia E78.0 and HTN (hypertension) I10 [facility] [id number] [place] [phone] Jan, HTN (hypertension) I10 ; Pure hypercholesterolemia E78.0 ; Hypercholesterolemia E78.0 ; Depression F32.9 and Intractable episodic cluster headache G44.011 [facility] [address] [place] [address] [id number] Apr, Dental caries K02.9 and Dental examination Z01.20 [facility] [address] [place] [address] [id number] Apr, [facility] [id number] [place] [address] [phone] Apr, Dental examination Z01.20 [facility] [id number] [place] [address] [phone] Mar, Dental examination Z01.20 [facility] [address] [place] [address] [id number] February, Dental examination Z01.20 [facility] [id number] [place] [phone] February, Pure hypercholesterolemia E78.0 [facility] [address] [address] Jan, Joint pain M25.50 ; Depression F32.9 and Dermatitis L30.9 [facility] [id number] [place] [address] [id number] Nov, Encounter for dental examination Z01.20 [facility] [id number] [place] [address] [id number] Nov, [facility] [id number] [place] [address] [id number] Nov, Encounter for dental examination Z01.20 [facility] [id number] [place] [address] [id number] Nov, Encounter for dental examination Z01.20 [facility] [address] [address] Sep, Bursitis of right hip M70.71 and Trochanteric bursitis of right hip M70.61 [facility] [id number] [place] [phone] Sep, [facility] [address] [address] Sep, HTN (hypertension) I10 and Hypercholesterolemia E78.0 [facility] [address] [address] Sep, History of breast lump/mass excision Z98.89 [facility] [id number] [place] [phone] Sep, [facility] [address] [address] 16 Sep, 2015 History of breast lump/mass excision Z98.89 [facility] [address] [facility] [id number] [address] 07 Sep, 2015 Encounter for screening mammogram for breast cancer Z12.31 [facility] [address] [facility] [id number] [place] [address] 07 Sep, 2015 HTN (hypertension) I10 ; Hypercholesterolemia E78.0 ; Depression F32.9 and Breast self examination education, encounter for Z71.89 IMMUNIZATIONS No Known Immunizations SOCIAL HISTORY Never Assessed REASON FOR VISIT Transition of Care, prior pcp Cherry Todd--Shweta PLAN OF CARE Activity Details Follow Up 6 Months with Moisés SABILLON Reason: VITAL SIGNS Height 65 in 2017-10-08 Weight 161.8 lbs 2017-10-08 Temperature 98.3 degrees Fahrenheit 2017-10-08 Heart Rate 88 bpm 2017-10-08 Respiratory Rate 20 2017-10-08 BMI 26.92 kg/m2 2017-10-08 Blood pressure systolic 148 mmHg 2017-10-08 Blood pressure diastolic 90 mmHg 2017-10-08 MEDICATIONS Medication Instructions Dosage Frequency Start Date End Date Duration Status Fish Oil Burp-Less 1000 MG Orally Once a day 1 capsule 24h Active Hydrocodone-Acetaminophen 5-325 MG Orally 3 times a day 1 tablet as needed 8h May, Active Multi Vitamin - Orally Once a day 1 tablet 24h Active Lorazepam 0.5 MG Orally 2 times a day 1 tablet as needed 12h May, Active Citalopram Hydrobromide 20 MG TAKE ONE TABLET BY MOUTH ONCE DAILY 30 Not-Taking Celexa 20 mg Orally Once a day 1 tablets 24h 90 days Active Chantix Starting Month Panchito 0.5 MG X 11 & 1 MG X 42 1 tablet May, Not-Taking Verapamil HCl ER 240 MG Orally Once a day 1 capsule 24h Jan, 90 days Active RESULTS No Results PROCEDURES No Known procedures INSTRUCTIONS MEDICATIONS ADMINISTERED No Known Medications MEDICAL (GENERAL) HISTORY Type Description Date Medical History hypertension Medical History depression Surgical History wisdom teeth extraction Hospitalization History panic attack 2012
--- OUTSIDE RECORDS SUMMARY | 2019-03-28 17:26 | XMS REPORT ---
Author Author DAX Fofana Organization [facility] Address [address] [place] [address] Care Team Providers Care Sales Development Manager Name Role Phone Ct DAX Unavailable PROBLEMS Type Condition ICD9-CM Code NFX99-DR Code Onset Dates Condition Status SNOMED Code Problem Intractable episodic cluster headache G44.011 Active 657218387493987 Problem Depression F32.9 Active 59763566 Problem Hypercholesterolemia E78.00 Active 35637321 Problem HTN (hypertension) I10 Active 62704724 Problem Masses of both breasts N63 Active 81569584 ALLERGIES No Information ENCOUNTERS Encounter Location Date Diagnosis [place] [id number] [address] Oct, Masses of both breasts N63 and Screening for breast cancer Z12.31 [place] [address] [address] Sep, Screening for breast cancer Z12.31 and Tobacco use Z72.0 [place] [address] [address] Aug, Encounter for immunization Z23 [place] [address] [address] Jun, Depression F32.9 [facility] [address] [id number] Jun, Dental examination Z01.20 [place] [address] [address] May, HTN (hypertension) I10 ; Depression F32.9 ; Pure hypercholesterolemia E78.0 ; Intractable episodic cluster headache G44.011 and Tobacco abuse counseling Z71.6 [facility] [id number] [place] [address] [id number] Mar, Dental examination Z01.20 [facility] [id number] [place] [address] [id number] Mar, Encounter for dental examination Z01.20 [facility] [id number] [place] [phone] Mar, Depression F32.9 and Pure hypercholesterolemia E78.0 [facility] [address] [phone] Mar, Pure hypercholesterolemia E78.0 ; Depression F32.9 and HTN (hypertension) I10 [facility] [address] [address] Mar, Depression F32.9 ; Pure hypercholesterolemia E78.0 and HTN (hypertension) I10 [facility] [address] [address] Jan, HTN (hypertension) I10 ; Pure hypercholesterolemia E78.0 ; Hypercholesterolemia E78.0 ; Depression F32.9 and Intractable episodic cluster headache G44.011 [facility] [address] [id number] Apr, Dental caries K02.9 and Dental examination Z01.20 [facility] [id number] [place] [address] [id number] Apr, [facility] [id number] [place] [address] [id number] Apr, Dental examination Z01.20 [facility] [id number] [place] [address] [id number] Mar, Dental examination Z01.20 [facility] [id number] [place] [address] [id number] February, Dental examination Z01.20 [facility] [id number] [place] [phone] February, Pure hypercholesterolemia E78.0 [place] [address] [place] [address] Jan, Joint pain M25.50 ; Depression F32.9 and Dermatitis L30.9 [facility] [id number] [place] [address] [id number] Nov, Encounter for dental examination Z01.20 [facility] [id number] [place] [address] [id number] Nov, [facility] [id number] [place] [address] [id number] Nov, Encounter for dental examination Z01.20 [facility] [address] [id number] Nov, Encounter for dental examination Z01.20 [place] [id number] [place] [phone] Sep, Bursitis of right hip M70.71 and Trochanteric bursitis of right hip M70.61 [place] [id number] [place] [phone] Sep, [place] [address] [address] Sep, HTN (hypertension) I10 and Hypercholesterolemia E78.0 [place] [id number] [place] [phone] Sep, History of breast lump/mass excision Z98.89 [facility] [id number] [place] [phone] Sep, [facility] [id number] [place] [phone] 16 Sep, 2015 History of breast lump/mass excision Z98.89 [facility] [id number] [place] [phone] 07 Sep, 2015 Encounter for screening mammogram for breast cancer Z12.31 [facility] [address] [place] [address] [address] Sep, HTN (hypertension) I10 ; Hypercholesterolemia E78.0 ; Depression F32.9 and Breast self examination education, encounter for Z71.89 IMMUNIZATIONS No Known Immunizations SOCIAL HISTORY Never Assessed REASON FOR VISIT Med Refill PLAN OF CARE VITAL SIGNS MEDICATIONS Medication Instructions Dosage Frequency Start Date End Date Duration Status Celexa 20 mg Orally Once a day 1 tablets 24h 90 days Active RESULTS No Results PROCEDURES No Known procedures INSTRUCTIONS MEDICATIONS ADMINISTERED No Known Medications MEDICAL (GENERAL) HISTORY Type Description Date Medical History hypertension Medical History depression Surgical History wisdom teeth extraction Hospitalization History panic attack 2012
--- OUTSIDE RECORDS SUMMARY | 2019-03-28 17:26 | XMS REPORT ---
Author Author ADX MARTIN Organization [facility] Address [address] [place] [address] Care Team Providers Care Exhaust Worker Name Role Phone DAX MARTIN Unavailable PROBLEMS Type Condition ICD9-CM Code THC08-NO Code Onset Dates Condition Status SNOMED Code Problem Masses of both breasts N63 Active 67219624 Problem Hypercholesterolemia E78.00 Active 83556472 Problem Intractable episodic cluster headache G44.011 Active 510299232984802 Problem Encounter for screening mammogram for breast cancer Z12.31 Active 770224371 Problem Depression F32.9 Active 73242237 Problem HTN (hypertension) I10 Active 05708186 Problem Dental examination Z01.20 Active 187880066 Problem Encounter for dental examination Z01.20 Active 263143181 ALLERGIES No Information SOCIAL HISTORY Never Assessed PLAN OF CARE VITAL SIGNS MEDICATIONS Unknown Medications RESULTS Name Result Date Reference Range Mammogram, Bilateral Screening 2016-10-06 PROCEDURES No Known procedures IMMUNIZATIONS No Known Immunizations MEDICAL (GENERAL) HISTORY Type Description Date Medical History hypertension Medical History depression Surgical History wisdom teeth extraction Hospitalization History panic attack 2012
--- OUTSIDE RECORDS SUMMARY | 2019-03-28 17:26 | XMS REPORT ---
Author Author LUKE BLISS Organization [facility] Address [address] [place] [address] Care Team Providers Care Process Analyst Name Role Phone LUKE BLISS Unavailable PROBLEMS Type Condition ICD9-CM Code [id number] Code Onset Dates Condition Status SNOMED Code Problem Intractable episodic cluster headache G44.011 Active 759178706131153 Problem Depression F32.9 Active 99853431 Problem Hypercholesterolemia E78.00 Active 89885400 Problem HTN (hypertension) I10 Active 08765353 Problem Masses of both breasts N63 Active 09862162 ALLERGIES No Information ENCOUNTERS Encounter Location Date Diagnosis [place] [address] [address] Mar, [facility] [address] [address] February, Depression F32.9 and HTN (hypertension) I10 [place] [address] [address] Oct, Masses of both breasts N63 and Screening for breast cancer Z12.31 [place] [address] [place] [id number] [place] [address] Sep, Screening for breast cancer Z12.31 and Tobacco use Z72.0 [facility] [address] [address] Aug, Encounter for immunization Z23 [place] [address] [address] 15 Jun, 2017 Depression F32.9 [facility] [id number] [place] [id number] 15 Jun, 2017 Dental examination Z01.20 [place] [address] [place] [id number] [place], [place] [phone] May, HTN (hypertension) I10 ; Depression F32.9 ; Pure hypercholesterolemia E78.0 ; Intractable episodic cluster headache G44.011 and Tobacco abuse counseling Z71.6 [facility] [id number] [place] [phone] Mar, Dental examination Z01.20 [facility] [address] [id number] Mar, Encounter for dental examination Z01.20 [facility] [address] [place] [id number] Mar, Depression F32.9 and Pure hypercholesterolemia E78.0 [facility] [address] [address] Mar, Pure hypercholesterolemia E78.0 ; Depression F32.9 and HTN (hypertension) I10 [facility] [address] [place] [id number] [place] [address] Mar, Depression F32.9 ; Pure hypercholesterolemia E78.0 and HTN (hypertension) I10 [facility] [address] [place] [id number] [place] [address] Jan, HTN (hypertension) I10 ; Pure hypercholesterolemia E78.0 ; Hypercholesterolemia E78.0 ; Depression F32.9 and Intractable episodic cluster headache G44.011 [facility] [id number] [place] [id number] Apr, Dental caries K02.9 and Dental examination Z01.20 [facility] [id number] [place] [phone] Apr, [facility] [address] [place] [address] [id number] [place] [id number] Apr, Dental examination Z01.20 [facility] [address] [id number] Mar, Dental examination Z01.20 [facility] [address] [place] [address] [id number] [place] [id number] February, Dental examination Z01.20 [facility] [address] [address] February, Pure hypercholesterolemia E78.0 [facility] [address] [address] Jan, Joint pain M25.50 ; Depression F32.9 and Dermatitis L30.9 [facility] [address] [id number] Nov, Encounter for dental examination Z01.20 [facility] [address] [id number] Nov, [facility] [address] [id number] Nov, Encounter for dental examination Z01.20 [facility] [address] [id number] Nov, Encounter for dental examination Z01.20 [facility] [address] [address] Sep, Bursitis of right hip M70.71 and Trochanteric bursitis of right hip M70.61 [facility] [address] [place] [id number] [place] [phone] Sep, [facility] [address] [place] [id number] [place] [phone] Sep, HTN (hypertension) I10 and Hypercholesterolemia E78.0 [facility] [address] [place] [id number] [place] [phone] Sep, History of breast lump/mass excision Z98.89 [facility] [address] [place] [id number] [place] [phone] Sep, [facility] [address] [address] Sep, History of breast lump/mass excision Z98.89 [facility] [address] [facility] [id number] [place] [address] Sep, Encounter for screening mammogram for breast cancer Z12.31 [facility] [address] [facility] [id number] [place] [address] 07 Sep, 2015 HTN (hypertension) I10 ; Hypercholesterolemia E78.0 ; Depression F32.9 and Breast self examination education, encounter for Z71.89 IMMUNIZATIONS No Known Immunizations SOCIAL HISTORY Never Assessed REASON FOR VISIT Order Change Mammo PLAN OF CARE VITAL SIGNS MEDICATIONS Unknown Medications RESULTS No Results PROCEDURES No Known procedures INSTRUCTIONS MEDICATIONS ADMINISTERED No Known Medications MEDICAL (GENERAL) HISTORY Type Description Date Medical History hypertension Medical History depression Surgical History wisdom teeth extraction Hospitalization History panic attack 2012
--- OUTSIDE RECORDS SUMMARY | 2019-03-28 17:26 | XMS REPORT ---
Author Author DAX MARTIN Organization [employer] Address Unknown Phone Unavailable Care Team Providers Care Reefer Truck Driver Name Role Phone ADX MARTIN Unavailable Allergies No Known Allergies Problems Problem Type Condition Code Onset Dates Condition Status Problem Hypercholesterolemia E78.0 Active Problem Depression F32.9 Active Problem HTN (hypertension) I10 Active Problem Masses of both breasts N63 Active Medications No Known Medications Results No Known Results Summary Purpose [employer] Submission
--- OUTSIDE RECORDS SUMMARY | 2019-03-28 17:26 | XMS REPORT ---
Author Author DAX MARTIN [facility] [employer] Address Unknown Phone Unavailable Care Team Providers Care Senior Staff Psychologist Name Role Phone DAX MARTIN CP Unavailable Allergies, Adverse Reactions, Alerts Substance Reaction Event Type N.K.D.A. Info Not Available Non Drug Allergy Problems Problem Type Condition Code Onset Dates Condition Status Problem Hypercholesterolemia E78.0 Active Problem Depression F32.9 Active Problem HTN (hypertension) I10 Active Assessment Depression F32.9 Active Assessment Breast self examination education, encounter for Z71.89 Active Assessment HTN (hypertension) I10 Active Assessment Hypercholesterolemia E78.0 Active Medications Medication Code System Code Instructions Start Date End Date Status Dosage Metoprolol Tartrate [facility] [address]-30 25 MG Orally Twice a day 1 tablet Celexa [facility] [address]-34 20 Orally Once a day Sep 27, 2015 1 tablets Procedures Procedure Coding System Code Date Office Visit, New Pt., Level 4 CPT-4 43460 Sep 27, 2015 Vital Signs Date/Time: Sep 27, 2015 Temperature 98 F Weight 165.5 lbs Height 65 in BMI 27.54 Index Blood Pressure Diastolic 86 mmHg Blood Pressure Systolic 132 mmHg Cardiac Monitoring Heart Rate 72 bpm Results No Known Results Summary Purpose [employer] Submission
--- OUTSIDE RECORDS SUMMARY | 2019-03-28 17:26 | XMS REPORT ---
Author Author DAX MARTIN Organization [facility] Address [address] [place] [address] Care Team Providers Care Ceramics Machine Operator Name Role Phone DAX MARTIN Unavailable PROBLEMS Type Condition ICD9-CM Code [id number] Code Onset Dates Condition Status SNOMED Code Problem Masses of both breasts N63 Active 45018436 Problem Hypercholesterolemia E78.00 Active 10604646 Problem Intractable episodic cluster headache G44.011 Active 136131355500636 Problem Encounter for screening mammogram for breast cancer Z12.31 Active 573798418 Problem Depression F32.9 Active 10824042 Problem HTN (hypertension) I10 Active 52692676 Problem Dental examination Z01.20 Active 294836474 Problem Encounter for dental examination Z01.20 Active 158789205 ALLERGIES No Information SOCIAL HISTORY Never Assessed PLAN OF CARE Activity Details Pending Test LIPID PANEL Pending Test CMP Pending Test CBC Pending Test THYROID ANALYZER VITAL SIGNS MEDICATIONS Unknown Medications RESULTS No Results PROCEDURES Procedure Date Ordered Result Body Site LIPID PANEL March 28, 2017 COMPREHEN METABOLIC PANEL March 28, 2017 ASSAY THYROID STIM HORMONE March 28, 2017 COMPLETE CBC W/AUTO DIFF WBC March 28, 2017 IMMUNIZATIONS No Known Immunizations MEDICAL (GENERAL) HISTORY Type Description Date Medical History hypertension Medical History depression Surgical History wisdom teeth extraction Hospitalization History panic attack 2012
--- OUTSIDE RECORDS SUMMARY | 2019-03-28 17:26 | XMS REPORT ---
Author Author DAX MARTIN [facility] Address Unknown Phone Unavailable Care Team Providers Care Furnace Loader Name Role Phone DAX MARTIN Unavailable Allergies No Known Allergies Problems Problem Type Condition Code Onset Dates Condition Status Problem Hypercholesterolemia E78.0 Active Problem Depression F32.9 Active Problem HTN (hypertension) I10 Active Problem Masses of both breasts N63 Active Medications No Known Medications Results No Known Results Summary Purpose [employer] Submission
--- OUTSIDE RECORDS SUMMARY | 2019-03-28 17:26 | XMS REPORT ---
Author Author DAX MARTIN [facility] [employer] Address Unknown Phone Unavailable Care Team Providers Care Rn Allergy Name Role Phone DAX MARTIN CP Unavailable Allergies, Adverse Reactions, Alerts Substance Reaction Event Type N.K.D.A. Info Not Available Non Drug Allergy Problems Problem Type Condition Code Onset Dates Condition Status Problem Hypercholesterolemia E78.0 Active Problem Depression F32.9 Active Problem HTN (hypertension) I10 Active Assessment Trochanteric bursitis of right hip M70.61 Active Problem Masses of both breasts N63 Active Assessment Bursitis of right hip M70.71 Active Medications Medication Code System Code Instructions Start Date End Date Status Dosage Ibuprofen [facility] [address]-00 800 MG Orally Three times a day Oct 21, 2015 Nov 20, 2015 1 tablet Celexa [facility] [address]-14 20 Orally Once a day Sep 27, 2015 1 tablets Metoprolol Tartrate [facility] [address]-23 25 MG Orally Twice a day 1 tablet Procedures Procedure Coding System Code Date DEXAMETHASONE 4MG/ML (PER 1 MG) CPT-4 J1100 Oct 21, 2015 THER/PROPH/DIAG INJ, SC/IM CPT-4 89119 Oct 21, 2015 Office Visit, Est Pt., Level 3 CPT-4 93842 Oct 21, 2015 DEPO MEDROL 40 MG/ML CPT-4 J1030 Oct 21, 2015 Vital Signs Date/Time: Oct 21, 2015 Temperature 98.6 F Weight 165.6 lbs Height 65 in BMI 27.55 Index Blood Pressure Diastolic 70 mmHg Blood Pressure Systolic 120 mmHg Cardiac Monitoring Heart Rate 78 bpm Results No Known Results Summary Purpose [employer] Submission
--- OUTSIDE RECORDS SUMMARY | 2019-03-28 17:26 | XMS REPORT ---
Author Author LUKE BLISS Organization [facility] Address [address] [place] [address] Care Team Providers Care Interior Decorator Paperhanging Name Role Phone LUKE BLISS Unavailable PROBLEMS Type Condition ICD9-CM Code [id number] Code Onset Dates Condition Status SNOMED Code Problem Intractable episodic cluster headache G44.011 Active 562018402514883 Problem Depression F32.9 Active 36293228 Problem Hypercholesterolemia E78.00 Active 60058549 Problem HTN (hypertension) I10 Active 41404296 Problem Masses of both breasts N63 Active 90890510 ALLERGIES No Information ENCOUNTERS Encounter Location Date Diagnosis [facility] [address] [place] [id number] [place] [phone] Jun, [facility] [address] [place] [id number] [place] [phone] Apr, [facility] [address] [place] [id number] [place] [id number] Apr, [facility] [address] [place] [id number] [place] [id number] Apr, [facility] [address] [place] [id number] [place] [phone] February, Depression F32.9 and HTN (hypertension) I10 [facility] [address] [place] [id number] [place] [phone] Oct, Masses of both breasts N63 and Screening for breast cancer Z12.31 [facility] [address] [place] [id number] [place] [phone] Sep, Screening for breast cancer Z12.31 and Tobacco use Z72.0 [facility] [address] [place] [id number] [place] [phone] Aug, Encounter for immunization Z23 [facility] [address] [place] [id number] [place] [phone] Jun, Depression F32.9 [facility] [address] [id number] Jun, Dental examination Z01.20 [facility] [address] [address] May, HTN (hypertension) I10 ; Depression F32.9 ; Pure hypercholesterolemia E78.0 ; Intractable episodic cluster headache G44.011 and Tobacco abuse counseling Z71.6 [facility] [address] [id number] Mar, Dental examination Z01.20 [facility] [address] [id number] Mar, Encounter for dental examination Z01.20 [facility] [address] [address] Mar, Depression F32.9 and Pure hypercholesterolemia E78.0 [facility] [address] [address] Mar, Pure hypercholesterolemia E78.0 ; Depression F32.9 and HTN (hypertension) I10 [facility] [address] [place] [id number] [place] [address] Mar, Depression F32.9 ; Pure hypercholesterolemia E78.0 and HTN (hypertension) I10 [facility] [address] [place] [id number] [place] [phone] Jan, HTN (hypertension) I10 ; Pure hypercholesterolemia E78.0 ; Hypercholesterolemia E78.0 ; Depression F32.9 and Intractable episodic cluster headache G44.011 [facility] [address] [place] [id number] [place] [id number] Apr, Dental caries K02.9 and Dental examination Z01.20 [facility] [address] [id number] Apr, [facility] [address] [place] [phone] Apr, Dental examination Z01.20 [facility] [address] [place] [id number] [place] [id number] Mar, Dental examination Z01.20 [facility] [address] [id number] February, Dental examination Z01.20 [facility] [address] [address] February, Pure hypercholesterolemia E78.0 [facility] [address] [address] Jan, Joint pain M25.50 ; Depression F32.9 and Dermatitis L30.9 [facility] [address] [id number] Nov, Encounter for dental examination Z01.20 [facility] [address] [place] [id number] [place] [id number] Nov, [facility] [address] [id number] Nov, Encounter for dental examination Z01.20 [facility] [address] [place] [id number] [place] [address] [id number] Nov, Encounter for dental examination Z01.20 [facility] [address] [place] [id number] [place] [phone] Sep, Bursitis of right hip M70.71 and Trochanteric bursitis of right hip M70.61 [facility] [address] [address] Sep, [facility] [address] [address] Sep, HTN (hypertension) I10 and Hypercholesterolemia E78.0 [facility] [address] [address] Sep, History of breast lump/mass excision Z98.89 [facility] [address] [facility] [id number] [address] Sep, [facility] [address] [place] [id number] [address] Sep, History of breast lump/mass excision Z98.89 [place] [address] [place] [id number] [address] Sep, Encounter for screening mammogram for breast cancer Z12.31 [place] [address] [facility] [id number] [address] Sep, HTN (hypertension) I10 ; Hypercholesterolemia E78.0 ; Depression F32.9 and Breast self examination education, encounter for Z71.89 IMMUNIZATIONS No Known Immunizations SOCIAL HISTORY Never Assessed REASON FOR VISIT med refills PLAN OF CARE VITAL SIGNS MEDICATIONS Medication Instructions Dosage Frequency Start Date End Date Duration Status Verapamil HCl ER 240 MG Orally Once a day 1 capsule 24h Jan, 90 days Active Celexa 20 mg Orally Once a day 1 tablets 24h 90 days Active RESULTS No Results PROCEDURES No Known procedures INSTRUCTIONS MEDICATIONS ADMINISTERED No Known Medications MEDICAL (GENERAL) HISTORY Type Description Date Medical History hypertension Medical History depression Surgical History wisdom teeth extraction Hospitalization History panic attack 2012
--- OUTSIDE RECORDS SUMMARY | 2019-03-28 17:26 | XMS REPORT ---
Author Author DAX MARTIN [facility] [employer] Address Unknown Phone Unavailable Care Team Providers Care Brake Operator Helper Name Role Phone DAX MARTIN Unavailable Allergies No Known Allergies Problems Problem Type Condition Code Onset Dates Condition Status Problem Hypercholesterolemia E78.0 Active Problem Depression F32.9 Active Problem HTN (hypertension) I10 Active Assessment Hypercholesterolemia E78.0 Active Problem Masses of both breasts N63 Active Assessment HTN (hypertension) I10 Active Medications No Known Medications Procedures Procedure Coding System Code Date COMPLETE CBC W/AUTO DIFF WBC CPT-4 34483 Oct 11, 2015 LIPID PANEL CPT-4 16713 Oct 11, 2015 ASSAY THYROID STIM HORMONE CPT-4 75416 Oct 11, 2015 VENIPUNCT, ROUTINE* CPT-4 34589 Oct 11, 2015 COMPREHEN METABOLIC PANEL CPT-4 30067 Oct 11, 2015 Results Name Result Date Reference Range Unit Abnormality Flag ROUTINE VENIPUNCTURE Summary Purpose eClinicalWorks Submission
--- OUTSIDE RECORDS SUMMARY | 2019-03-28 17:27 | XMS REPORT ---
Author Author DAKOTA COOLEY [employer] Address Unknown Phone Unavailable Care Team Providers Care Housecleaner Floor Name Role Phone DAKOTA COOLEY CP Unavailable Allergies, Adverse Reactions, Alerts Substance Reaction Event Type Codeine Sulfate itching Drug Allergy Problems Problem Type Condition Code Onset Dates Condition Status Assessment Dental caries K02.9 Active Assessment Dental examination Z01.20 Active Problem Dental examination Z01.20 Active Problem Encounter for dental examination Z01.20 Active Problem Pure hypercholesterolemia E78.0 Active Problem Depression F32.9 Active Problem Masses of both breasts N63 Active Problem HTN (hypertension) I10 Active Problem Hypercholesterolemia E78.0 Active Medications Medication Code System Code Instructions Start Date End Date Status Dosage Percocet [facility] [address]-11 10-325 MG Orally every 4- 6 hrs May 17, 2016 1 tablet as needed Procedures Procedure Coding System Code Date EXTRAC ERUPTED TOOTH/EXPOSED ROOT CPT-4 D7140 May 17, 2016 Vital Signs Date/Time: May 17, 2016 Blood Pressure Diastolic 98 mmHg Blood Pressure Systolic 166 mmHg Results No Known Results Summary Purpose eClinicalWorks Submission
--- OUTSIDE RECORDS SUMMARY | 2019-03-28 17:27 | XMS REPORT ---
Author Author DAX Fofana Organization [facility] Address [address] [place] [address] Care Team Providers Care Hedis Review Nurse Name Role Phone Ct DAX Unavailable PROBLEMS Type Condition ICD9-CM Code DSF22-ZY Code Onset Dates Condition Status SNOMED Code Problem Intractable episodic cluster headache G44.011 Active 112457454156750 Problem Depression F32.9 Active 71862138 Problem Hypercholesterolemia E78.00 Active 88762292 Problem HTN (hypertension) I10 Active 62525988 Problem Masses of both breasts N63 Active 99000419 ALLERGIES No Information ENCOUNTERS Encounter Location Date Diagnosis [place] [address] [address] Oct, Masses of both breasts N63 and Screening for breast cancer Z12.31 [place] [address] [address] Sep, Screening for breast cancer Z12.31 and Tobacco use Z72.0 [place] [address] [address] Aug, Encounter for immunization Z23 [place] [address] [address] Jun, Depression F32.9 [facility] [address] [id number] Jun, Dental examination Z01.20 [place] [address] [address] May, HTN (hypertension) I10 ; Depression F32.9 ; Pure hypercholesterolemia E78.0 ; Intractable episodic cluster headache G44.011 and Tobacco abuse counseling Z71.6 [facility] [address] [place] [id number] [place] [address] [phone] Mar, Dental examination Z01.20 [facility] [address] [place] [id number] [place] [address] [phone] Mar, Encounter for dental examination Z01.20 [facility] [address] [place] [id number] [place] [phone] Mar, Depression F32.9 and Pure hypercholesterolemia E78.0 [facility] [address] [place] [id number] Mar, Pure hypercholesterolemia E78.0 ; Depression F32.9 and HTN (hypertension) I10 [facility] [address] [address] Mar, Depression F32.9 ; Pure hypercholesterolemia E78.0 and HTN (hypertension) I10 [facility] [address] [address] Jan, HTN (hypertension) I10 ; Pure hypercholesterolemia E78.0 ; Hypercholesterolemia E78.0 ; Depression F32.9 and Intractable episodic cluster headache G44.011 [facility] [address] [id number] Apr, Dental caries K02.9 and Dental examination Z01.20 [facility] [address] [place] [id number] [place] [address] [phone] Apr, [facility] [address] [place] [id number] [place] [address] [id number] Apr, Dental examination Z01.20 [facility] [address] [place] [id number] [place] [address] [id number] Mar, Dental examination Z01.20 [facility] [address] [place] [id number] [place] [address] [phone] February, Dental examination Z01.20 [facility] [address] [place] [id number] [place] [address] February, Pure hypercholesterolemia E78.0 [place] [id number] [place] [address] Jan, Joint pain M25.50 ; Depression F32.9 and Dermatitis L30.9 [facility] [address] [place] [id number] [place] [address] [phone] Nov, Encounter for dental examination Z01.20 [facility] [address] [place] [id number] [place] [address] [phone] Nov, [facility] [address] [place] [id number] [place] [address] [id number] Nov, Encounter for dental examination Z01.20 [facility] [address] [id number] Nov, Encounter for dental examination Z01.20 [place] [address] [place] [id number] [place] [address] Sep, Bursitis of right hip M70.71 and Trochanteric bursitis of right hip M70.61 [place] [address] [place] [id number] [place] [phone] Sep, [place] [address] [address] Sep, HTN (hypertension) I10 and Hypercholesterolemia E78.0 [place] [address] [place] [id number] [place] [phone] Sep, History of breast lump/mass excision Z98.89 [facility] [address] [place] [id number] [place] [phone] Sep, [facility] [address] [place] [id number] [place] [address] 16 Sep, 2015 History of breast lump/mass excision Z98.89 [facility] [address] [place] [id number] [place] [phone] 07 Sep, 2015 Encounter for screening mammogram for breast cancer Z12.31 [facility] [address] [place] [id number] [place] [address] Sep, HTN (hypertension) I10 ; Hypercholesterolemia E78.0 ; Depression F32.9 and Breast self examination education, encounter for Z71.89 IMMUNIZATIONS No Known Immunizations SOCIAL HISTORY Never Assessed REASON FOR VISIT Lab (walk-in) PLAN OF CARE VITAL SIGNS MEDICATIONS Unknown Medications RESULTS Name Result Date Reference Range THYROID ANALYZER 2017-03-28 TSH 2.320 0.450-4.500 CBC 2017-03-28 WBC 7.4 3.4-10.8 RBC 4.62 3.77-5.28 Hemoglobin 14.3 11.1-15.9 Hematocrit 42.8 34.0-46.6 MCV 93 79-97 MCH 31.0 26.6-33.0 MCHC 33.4 31.5-35.7 RDW 13.3 12.3-15.4 Platelets 348 150-379 Neutrophils 62 Lymphs 25 Monocytes 9 Eos 4 Basos 0 Neutrophils (Absolute) 4.5 1.4-7.0 Lymphs (Absolute) 1.9 0.7-3.1 Monocytes(Absolute) 0.7 0.1-0.9 Eos (Absolute) 0.3 0.0-0.4 Baso (Absolute) 0.0 0.0-0.2 Immature Granulocytes 0 Immature Grans (Abs) 0.0 0.0-0.1 LIPID PANEL 2017-03-28 Cholesterol, Total 247 100-199 Triglycerides 118 0-149 HDL Cholesterol 46 >39 VLDL Cholesterol Gino 24 5-40 LDL Cholesterol Calc 177 0-99 CMP 2017-03-28 Glucose, Serum 91 65-99 BUN 11 6-24 Creatinine, Serum 0.83 0.57-1.00 eGFR If NonAfricn Am 80 >59 eGFR If Africn Am 92 >59 BUN/Creatinine Ratio 13 9-23 Sodium, Serum 142 134-144 Potassium, Serum 4.6 3.5-5.2 Chloride, Serum 102 96-106 Carbon Dioxide, Total 23 18-29 Calcium, Serum 9.6 8.7-10.2 Protein, Total, Serum 6.4 6.0-8.5 Albumin, Serum 4.2 3.5-5.5 Globulin, Total 2.2 1.5-4.5 A/G Ratio 1.9 1.2-2.2 Bilirubin, Total 0.3 0.0-1.2 Alkaline Phosphatase, S 90 39-117 AST (SGOT) 13 0-40 ALT (SGPT) 14 0-32 PROCEDURES Procedure Date Ordered Result Body Site VENIPUNCT, ROUTINE* March 28, 2017 COMPLETE CBC W/AUTO DIFF WBC March 28, 2017 LIPID PANEL March 28, 2017 COMPREHEN METABOLIC PANEL March 28, 2017 ASSAY THYROID STIM HORMONE March 28, 2017 INSTRUCTIONS MEDICATIONS ADMINISTERED No Known Medications MEDICAL (GENERAL) HISTORY Type Description Date Medical History hypertension Medical History depression Surgical History wisdom teeth extraction Hospitalization History panic attack 2012
--- OUTSIDE RECORDS SUMMARY | 2019-03-28 17:27 | XMS REPORT | Continuity of Care Document ---
Author Organization Unknown Address Unknown Allergies There is no data. Medications There is no data. Problems Date Dx Coded Attending Type Code Diagnosis Diagnosed By 10/28/2015 DAX MARTIN WASHING MACHINE ASSEMBLER Ot I10 10/28/2015 DAX MARTIN WASHING MACHINE ASSEMBLER Ot R92.1 10/28/2015 DAX MARTIN WASHING MACHINE ASSEMBLER Ot Z98.89 Procedures There is no data. Results Test Result Range [facility] - 07/23/18 16:18 GLUCOSE 89 mg/dL 65-99 UREA NITROGEN (BUN) 10 mg/dL 7-25 CREATININE 0.81 mg/dL 0.50-1.05 eGFR NON-AFR. BOLIVIAN 81 mL/min/1.73m2 > OR=60 eGFR 94 mL/min/1.73m2 > OR=60 BUN/CREATININE RATIO NOT APPLICABLE (calc) 6-22 SODIUM 139 mmol/L 135-146 POTASSIUM 4.0 mmol/L 3.5-5.3 CHLORIDE 108 mmol/L 98-110 CARBON DIOXIDE 25 mmol/L 20-32 CALCIUM 9.4 mg/dL 8.6-10.4 PROTEIN, TOTAL 6.4 g/dL 6.1-8.1 ALBUMIN 4.3 g/dL 3.6-5.1 GLOBULIN 2.1 g/dL (calc) 1.9-3.7 ALBUMIN/GLOBULIN RATIO 2.0 (calc) 1.0-2.5 BILIRUBIN, TOTAL 0.4 mg/dL 0.2-1.2 ALKALINE PHOSPHATASE 93 U/L 33-130 AST 15 U/L 10-35 ALT 17 U/L 6-29 CBC - 07/23/18 16:18 WHITE BLOOD CELL COUNT 7.8 Thousand/uL 3.8-10.8 RED BLOOD CELL COUNT 4.39 Million/uL 3.80-5.10 HEMOGLOBIN 13.7 g/dL 11.7-15.5 HEMATOCRIT 40.7 % 35.0-45.0 MCV 92.7 fL 80.0-100.0 MCH 31.2 pg 27.0-33.0 MCHC 33.7 g/dL 32.0-36.0 RDW 12.3 % 11.0-15.0 PLATELET COUNT 336 Thousand/uL 140-400 MPV 10.4 fL 7.5-12.5 ABSOLUTE NEUTROPHILS 4672 cells/uL 8004-4778 ABSOLUTE LYMPHOCYTES 2254 cells/uL 850-3900 ABSOLUTE MONOCYTES 523 cells/uL 200-950 ABSOLUTE EOSINOPHILS 312 cells/uL 15-500 ABSOLUTE BASOPHILS 39 cells/uL 0-200 NEUTROPHILS 59.9 % NRG LYMPHOCYTES 28.9 % NRG MONOCYTES 6.7 % NRG EOSINOPHILS 4.0 % NRG BASOPHILS 0.5 % NRG PROGESTERONE - 01/02/19 14:59 PROGESTERONE 0.5 ng/mL NRG LIVER PANEL (LFT) - 02/14/19 10:53 PROTEIN, TOTAL 6.4 g/dL 6.1-8.1 ALBUMIN 4.2 g/dL 3.6-5.1 GLOBULIN 2.2 g/dL (calc) 1.9-3.7 ALBUMIN/GLOBULIN RATIO 1.9 (calc) 1.0-2.5 BILIRUBIN, TOTAL 0.4 mg/dL 0.2-1.2 ALKALINE PHOSPHATASE 93 U/L 33-130 AST 20 U/L 10-35 ALT 30 U/L 6-29 BILIRUBIN, DIRECT 0.1 mg/dL < OR=0.2 BILIRUBIN, INDIRECT 0.3 mg/dL (calc) 0.2-1.2 Encounters ACCT No. Visit Date/Time Discharge Status Pt. Type Provider Facility Loc./Unit Complaint [id number] 02/27/2019 10:40:00 02/27/2019 23:59:59 CLS Outpatient [facility] [id number] 02/14/2019 10:30:00 Document Registration [id number] 01/02/2019 13:20:00 Document Registration [id number] 07/23/2018 15:20:00 Document Registration [id number] 10/23/2017 09:16:00 10/23/2017 23:59:59 CLS PreadLUKE Russell MD [facility] RAD BREAST MASSES N63 [id number] 10/09/2017 09:22:00 10/09/2017 23:59:59 CLS Preadmit IZAIAH VANESSA, LUKE Palomo [facility] RAD SCREENING [id number] 10/06/2015 13:42:00 10/06/2015 23:59:59 CLS Outpatient DAX MARTIN [facility] RAD
--- OUTSIDE RECORDS SUMMARY | 2019-03-28 17:27 | XMS REPORT ---
Author Author DAX MARTIN Organization [facility] Address [address] [place] [address] Care Team Providers Care Room Inspector Name Role Phone DAX MARTIN Unavailable PROBLEMS Type Condition ICD9-CM Code QME34-ET Code Onset Dates Condition Status SNOMED Code Problem Masses of both breasts N63 Active 92117845 Problem Hypercholesterolemia E78.00 Active 53345474 Problem Intractable episodic cluster headache G44.011 Active 027717675302992 Problem Encounter for screening mammogram for breast cancer Z12.31 Active 460539320 Problem Depression F32.9 Active 55304997 Problem HTN (hypertension) I10 Active 12446147 Problem Dental examination Z01.20 Active 660651853 Problem Encounter for dental examination Z01.20 Active 619409958 ALLERGIES No Information SOCIAL HISTORY Never Assessed PLAN OF CARE VITAL SIGNS MEDICATIONS Unknown Medications RESULTS No Results PROCEDURES No Known procedures IMMUNIZATIONS No Known Immunizations MEDICAL (GENERAL) HISTORY Type Description Date Medical History hypertension Medical History depression Surgical History wisdom teeth extraction Hospitalization History panic attack 2012
--- OUTSIDE RECORDS SUMMARY | 2019-03-28 17:27 | XMS REPORT ---
Author Author DAKOTA COOLEY [employer] Address Unknown Phone Unavailable Care Team Providers Care Inside Sales Executive Name Role Phone DAKOTA COOLEY CP Unavailable Allergies, Adverse Reactions, Alerts Substance Reaction Event Type Codeine Sulfate itching Drug Allergy Problems Problem Type Condition Code Onset Dates Condition Status Assessment Dental examination Z01.20 Active Problem Dental examination Z01.20 Active Problem Encounter for dental examination Z01.20 Active Problem Pure hypercholesterolemia E78.0 Active Problem Depression F32.9 Active Problem Masses of both breasts N63 Active Problem HTN (hypertension) I10 Active Problem Hypercholesterolemia E78.0 Active Medications Medication Code System Code Instructions Start Date End Date Status Dosage Saxon [facility] [address]-14 7.5-325 MG Orally every 6 hrs 1 tablet as needed Azithromycin [facility] [address]-71 250 MG Orally May 08, 2016 2 tablets on the first day, then 1 tablet daily for 4 days Procedures Procedure Coding System Code Date Dental no charge CPT-4 D0099 May 03, 2016 Vital Signs Date/Time: May 03, 2016 Blood Pressure Diastolic 98 mmHg Blood Pressure Systolic 162 mmHg Results No Known Results Summary Purpose eClinicalWorks Submission
--- OUTSIDE RECORDS SUMMARY | 2019-03-28 17:27 | XMS REPORT ---
Author Author DAKOTA COOLEY [employer] Address Unknown Phone Unavailable Care Team Providers Care Professional Nursing Assistant Name Role Phone DAKOTA COOLEY CP Unavailable Allergies No Known Allergies Problems Problem Type Condition Code Onset Dates Condition Status Problem Dental examination Z01.20 Active Problem Encounter for dental examination Z01.20 Active Problem Pure hypercholesterolemia E78.0 Active Problem Depression F32.9 Active Problem Masses of both breasts N63 Active Problem HTN (hypertension) I10 Active Problem Hypercholesterolemia E78.0 Active Medications Medication Code System Code Instructions Start Date End Date Status Dosage Amoxicillin [facility] [address]-58 500 MG Orally Three times a day 1 capsule Results No Known Results Summary Purpose eClinicalWorks Submission
--- OUTSIDE RECORDS SUMMARY | 2019-03-28 17:27 | XMS REPORT ---
Author Author DAKOTA COOLEY [facility] Address Unknown Care Team Providers Care Course Developer Name Role Phone DAKOTA COOLEY Unavailable PROBLEMS Type Condition ICD9-CM Code PMG79-VH Code Onset Dates Condition Status SNOMED Code Problem Intractable episodic cluster headache G44.011 Active 120887947299801 Problem Depression F32.9 Active 32697434 Problem Hypercholesterolemia E78.00 Active 27969432 Problem HTN (hypertension) I10 Active 44992942 Problem Masses of both breasts N63 Active 59263011 ALLERGIES No Information ENCOUNTERS Encounter Location Date Diagnosis [place] [address] [address] Oct, Masses of both breasts N63 and Screening for breast cancer Z12.31 [place] [address] [address] Sep, Screening for breast cancer Z12.31 and Tobacco use Z72.0 [place] [address] [address] Aug, Encounter for immunization Z23 [place] [address] [address] Jun, Depression F32.9 [facility] [address] [phone] Jun, Dental examination Z01.20 [facility] [address] [address] May, HTN (hypertension) I10 ; Depression F32.9 ; Pure hypercholesterolemia E78.0 ; Intractable episodic cluster headache G44.011 and Tobacco abuse counseling Z71.6 [facility] [address] [id number] Mar, Dental examination Z01.20 [facility] [address] [id number] [id number] Mar, Encounter for dental examination Z01.20 [facility] [address] [place] [id number] [place] [phone] 07 Mar, 2017 Depression F32.9 and Pure hypercholesterolemia E78.0 [facility] [address] [place] [id number] [place] [phone] Mar, Pure hypercholesterolemia E78.0 ; Depression F32.9 and HTN (hypertension) I10 [facility] [address] [place] [id number] [place] [address] Mar, Depression F32.9 ; Pure hypercholesterolemia E78.0 and HTN (hypertension) I10 [facility] [address] [place] [id number] [place] [address] Jan, HTN (hypertension) I10 ; Pure hypercholesterolemia E78.0 ; Hypercholesterolemia E78.0 ; Depression F32.9 and Intractable episodic cluster headache G44.011 [facility] [id number] [place] [id number] Apr, Dental caries K02.9 and Dental examination Z01.20 [facility] [address] [id number] [id number] Apr, [facility] [id number] [place] [id number] Apr, Dental examination Z01.20 [facility] [address] [id number] [id number] Mar, Dental examination Z01.20 [facility] [id number] [place] [phone] February, Dental examination Z01.20 [facility] [address] [place] [id number] [place] [phone] February, Pure hypercholesterolemia E78.0 [facility] [address] [place] [id number] [place] [phone] Jan, Joint pain M25.50 ; Depression F32.9 and Dermatitis L30.9 [facility] [address] [place] [id number] [place] [id number] Nov, Encounter for dental examination Z01.20 [facility] [address] [place] [id number] [place] [id number] Nov, [facility] [address] [id number] Nov, Encounter for dental examination Z01.20 [facility] [address] [id number] Nov, Encounter for dental examination Z01.20 [facility] [address] [address] Sep, Bursitis of right hip M70.71 and Trochanteric bursitis of right hip M70.61 [place] [address] [address] Sep, [facility] [address] [address] Sep, HTN (hypertension) I10 and Hypercholesterolemia E78.0 [place] [address] [address] Sep, History of breast lump/mass excision Z98.89 [facility] [address] [address] Sep, [facility] [address] [address] 16 Sep, 2015 History of breast lump/mass excision Z98.89 [facility] [address] [address] Sep, Encounter for screening mammogram for breast cancer Z12.31 [facility] [address] [address] Sep, HTN (hypertension) I10 ; Hypercholesterolemia E78.0 ; Depression F32.9 and Breast self examination education, encounter for Z71.89 IMMUNIZATIONS No Known Immunizations SOCIAL HISTORY Never Assessed REASON FOR VISIT PLAN OF CARE VITAL SIGNS MEDICATIONS Medication Instructions Dosage Frequency Start Date End Date Duration Status Peridex 0.12 % as directed Nov, days Active RESULTS No Results PROCEDURES No Known procedures INSTRUCTIONS MEDICATIONS ADMINISTERED No Known Medications MEDICAL (GENERAL) HISTORY Type Description Date Medical History hypertension Medical History depression Surgical History wisdom teeth extraction Hospitalization History panic attack 2012
[2019-03-28] MEDS ORDERED: BACITRACIN OINTMENT 28 GM TUBE TOP SCH (21:00)
== END 2019-03-28 17:14 | disposition home or self-care (01) ==
LOC: EDUNIT# 16:16 → ER 16:17
DX: T23.261A Burn of second degree of back of right hand, initial encounter (principal); T22.221A Burn of second degree of right elbow, initial encounter; T20.16XA Burn of first degree of forehead and cheek, initial encounter; T28.411A Burn of right ear drum, initial encounter; T22.191A Burn of first degree of multiple sites of right shoulder and upper limb, except wrist and hand, initial encounter; T31.0 Burns involving less than 10% of body surface; E78.00 Pure hypercholesterolemia, unspecified; R40.2412 Glasgow coma scale score 13-15, at arrival to emergency department; Z23 Encounter for immunization; Z88.5 Allergy status to narcotic agent; Z87.891 Personal history of nicotine dependence; X04.XXXA Exposure to ignition of highly flammable material, initial encounter
CPT/HCPCS: 90471; 90715; 96372; 96374; 99284

== ENCOUNTER 2022-04-05 14:42 | Outpatient (RCR) | payer OTHER ==
[~2022-04-05 14:42] MED LIST: OXYC1TAB87 PO
== END 2022-04-20 | disposition home or self-care (01) ==
PROVIDERS: ATTEND Nurse Practitioner Family
DX: M25.551 Pain in right hip (principal); M25.552 Pain in left hip; G89.29 Other chronic pain

== ENCOUNTER 2022-05-15 15:23 | Outpatient (RCR) | payer OTHER | END 2022-05-21 | disposition home or self-care (01) | PROVIDERS: ATTEND Nurse Practitioner Family | DX: M25.551 Pain in right hip (principal); M25.552 Pain in left hip; G89.29 Other chronic pain ==

== ENCOUNTER → 2022-06-21 | Outpatient (RCR) | payer OTHER | END | disposition home or self-care (01) | PROVIDERS: ATTEND Nurse Practitioner Family | DX: M25.551 Pain in right hip (principal); M25.552 Pain in left hip; G89.29 Other chronic pain ==

== ENCOUNTER 2022-07-20 10:00 | Outpatient (RCR) | payer OTHER | END 2022-07-21 | disposition home or self-care (01) | PROVIDERS: ATTEND Nurse Practitioner Family | DX: M25.551 Pain in right hip (principal); M25.552 Pain in left hip; G89.29 Other chronic pain ==

== ENCOUNTER 2022-08-04 14:14 | Outpatient (RCR) | payer OTHER | END 2022-08-21 15:28 | disposition home or self-care (01) | PROVIDERS: ATTEND Nurse Practitioner Family | DX: M25.551 Pain in right hip (principal); M25.552 Pain in left hip; G89.29 Other chronic pain; I10 Essential (primary) hypertension ==